=== PATIENT | male | born 1985 | race Caucasian/White ===

== ENCOUNTER 2016-12-30 10:46 | Emergency (ER) | payer SELFPAY ==
[2016-12-30 11:10] VITALS: BP 124/67
--- NOTE | 2016-12-30 11:51 | UC ---
Skin Complaint HPI - HPI Summary HPI Summary: Patient presents to with CC of poison katy x 3 days which has been worsening. Endorses pruritis but denies pain. He has experienced these symptoms before and is usually prescribed topical and systemic steroids for alleviation. He has tried calamine lotion at home without relief. He states he has an allergy to poison katy, but denies other allergies. - History of Current Complaint Chief Complaint: [facility] Time Seen by Provider: 12/30/16 11:33 Stated Complaint: RASH Hx Obtained From: Patient Onset/Duration: Sudden Onset Skin Exposure Onset/Duration: Days Ago Timing: Constant Onset Severity: Moderate Current Severity: Moderate Pain Intensity: 0 Pain Scale Used: 0-10 Numeric Location: Diffuse Character: Hives Aggravating: Nothing Associated Signs & Symptoms: Positive: Negative Related History: Possible Reaction to: Environmental Exposure - Allergy/Home Medications Allergies/Adverse Reactions: Allergies Allergy/AdvReac Type Severity Reaction Status Date / Time No Known Allergies Allergy Verified 12/30/16 11:11 Review of Systems Constitutional: Negative Skin: Rash Eyes: Negative Respiratory: Negative Cardiovascular: Negative Motor: Negative Neurovascular: Negative Neurological: Negative Psychological: Negative All Other Systems Reviewed And Are Negative: Yes PMH/Surg Hx/FS Hx/Imm Hx Previously Healthy: Yes - Surgical History Surgical History: None - Family History Known Family History: Positive: Unknown - Social History Occupation: Employed Full-time Lives: With Family Alcohol Use: None Substance Use Type: None Smoking Status (MU): Never Smoked Tobacco Have You Smoked in the Last Year: No Physical Exam Triage Information Reviewed: Yes Appearance: Well-Appearing, No Pain Distress, Well-Nourished Vital Signs: Initial Vital Signs Temp 97.8 F 12/30/16 11:08 Pulse 54 12/30/16 11:08 Resp 16 12/30/16 11:08 BP 124/67 12/30/16 11:08 Pulse Ox 100 12/30/16 11:08 Vital Signs Reviewed: Yes Eye Exam: Normal Eyes: Positive: Conjunctiva Clear Neck exam: Normal Neck: Positive: Supple, Nontender, No Lymphadenopathy Respiratory Exam: Normal Respiratory: Positive: Chest non-tender, Lungs clear Musculoskeletal Exam: Normal Musculoskeletal: Positive: Strength Intact Neurological Exam: Normal Neurological: Positive: Alert, Muscle Tone Normal Psychological: Positive: Normal Response To Family, Age Appropriate Behavior Skin Exam: Normal Course/Dx - Course Course Of Treatment: Patient educated on poison katy and treatments. Prescribed topical and systemic steroids for diffuse rash over legs, arms and one small area to the right cheek. Patient made aware of results and plan and is OK with discharge. Medications reviewed with patient. - Differential Diagnoses - Skin Complaint Differential Diagnoses: Contact Dermatitis, Poison [place], Poison [place] - Diagnoses Provider Diagnoses: poison katy Discharge - Discharge Plan Condition: Stable Disposition: HOME Prescriptions: Loratadine & Pseudoephedrine [Claritin-D 12 Hour] 1 tab PO DAILY #5 tab Triamcinolone 0.5% CREAM(NF) [Triamcinolone 0.5% CREAM*] 1 applic TOPICAL BID # 1 tube predniSONE TAB* [Deltasone TAB*] 50 mg PO DAILY #4 tab MDD 1 Patient Education Materials: Poison [place] (ED), Cold Compress or Soak (ED) Referrals: No Primary Care Phys,NOPCP [Primary Care Provider] - Additional Instructions: Follow up as needed Triamcinalone - apply to affected areas twice daily Calamine lotion - apply to affected areas twice daily Prednisone daily for 4 days.
== END 2016-12-30 11:49 | disposition home or self-care (01) ==
LOC: UCEAST 10:46
DX: L23.7 Allergic contact dermatitis due to plants, except food (principal)
CPT/HCPCS: 99212; G0463

== ENCOUNTER 2019-03-13 20:49 | Emergency (ER) | payer SELFPAY ==
--- NOTE | 2019-03-13 20:57 | UC ---
Cardiac HPI - HPI Summary HPI Summary: 33 yo male presents with palpitations. He tells me that for the last 2 days he has been noticing palpitations at rest when he is sitting in his car, lying in bed, or resting at home. He describes these as a "skipping beat". He has no associated SOB, chest pain, headache, dizziness, or weakness. He does not smoke , but he does chew tobacco. He drinks 2-3 energy drinks a week and reports being quite stressed out at work. His symptoms are not exacerbated by exertion. He denies any past medical history or illicit drug use. He denies any family history - especially no cardiac events. - History of Current Complaint Stated Complaint: CHEST COMPLAINT Time Seen by Provider: 03/13/19 20:55 Hx Obtained From: Patient Onset/Duration: Sudden Onset Current Severity: None - Allergy/Home Medications Allergies/Adverse Reactions: Allergies Allergy/AdvReac Type Severity Reaction Status Date / Time No Known Allergies Allergy Verified 03/13/19 20:58 Home Medications: Home Medications NK [No Home Medications Reported] 03/13/19 [History Confirmed 03/13/19] PMH/Surg Hx/FS Hx/Imm Hx - Additional Past Medical History Additional PMH: None - Surgical History Surgical History: None - Family History Known Family History: Positive: Unknown - Social History Occupation: Employed Full-time Lives: With Family Alcohol Use: None Substance Use Type: None Smoking Status (MU): Never Smoked Tobacco Have You Smoked in the Last Year: No Review of Systems All Other Systems Reviewed And Are Negative: No Constitutional: Positive: Negative Skin: Positive: Negative Respiratory: Positive: Negative Cardiovascular: Positive: Palpitations Gastrointestinal: Positive: Negative Neurovascular: Positive: Negative Neurological: Positive: Negative Psychological: Positive: Negative Physical Exam - Summary Physical Exam Summary: GENERAL: NAD. WDWN. No pain distress. SKIN: No rashes, sores, lesions, or open wounds. NECK: Supple. Nontender. No lymphadenopathy. CHEST: CTAB. No r/r/w. No accessory muscle use. Breathing comfortably and in no distress. CV: RRR. Without m/r/g. Pulses intact. Cap refill <2seconds ABDOMEN: Soft. NTTP. No distention or guarding. No CVA tenderness. Bowel sounds present NEURO: Alert. PSYCH: Age appropriate behavior. Triage Information Reviewed: Yes Vital Signs: Vital Signs: Temp Pulse Resp BP Pulse Ox 99.6 F 64 16 147/71 98 03/13/19 20:52 03/13/19 20:52 03/13/19 20:52 03/13/19 20:52 03/13/19 20:52 Laboratory Tests 03/13/19 21:24 POC Glucose (mg/dL) 75 Vital Signs Reviewed: Yes - Assessment/Plan Course Of Treatment: EKbpm sinus bradycardia. Early normal repol ST. No STEMI as read by Dr. Bravo. During the EKG there was a singular PVC noted that was not captured on the tracing. Discussed with pt that his stress at work and energy drink usage could be playing a role in his palpitations. I discussed going to the ED this evening for an evaluation with likely labwork and cardiac monitoring to further evaluate his symptoms, but pt did not want to do this. Therefore, I will draw for CBC, CMP, TSH, and Mag here and have him f/u with a PCP within 1 week for further evaluation. I discussed with him that if his symptoms worsen such as increasing palpitations , chest pain/pressure, SOB, dizziness, headaches, or changing symptoms to call 911 or go to the ED - pt and spouse with him voiced understanding and are agreeable with the plan. - Clinical Impression Provider Diagnosis: Palpitations Discharge ED - Sign-Out/Discharge Documenting (check all that apply): Patient Departure All imaging exams completed and their final reports reviewed: No Studies - Discharge Plan Condition: Stable Disposition: HOME Patient Education Materials: Heart Palpitations (DC) Referrals: No Primary Care Phys,NOPCP [Primary Care Provider] - [facility] [place] [facility] REFERRAL [Outside] - 1 Week Additional Instructions: If you develop a fever, shortness of breath, chest pain, continued/worsening palpitations, dizziness, headache, vomiting, new or worsening symptoms - please call your PCP or go to the ED immediately. I recommend that you follow up with a primary doctor at the number below within 1 week for review of your labwork and further testing of your palpitations - Billing Disposition and Condition Condition: STABLE Disposition: Home - Attestation Statements Provider Attestation: Per institutional requirements, I have reviewed the chart, however, I was not consulted specifically or made aware of this patient by the midlevel provider. I did not personally evaluate, interact with , or disposition this patient. please note I was on duty until 14:[address] Bravo was on after 14:30
[2019-03-13 20:59] VITALS: BP 147/71
[2019-03-14 14:02] LABS: ABS Eosinophils 0.3 10^3/ul (0-0.6); ABS Monocytes 0.6 10^3/ul (0-0.8); ABS Neutrophils 4.8 10^3/ul (1.5-7.7); Eosinophil % 3.3 %; Hematocrit 43 % (42-52); Hemoglobin 15.1 g/dL (14.0-18.0); Lymphocyte % 26.2 %; Mean Corpuscular HGB Conc 35 g/dL (31-36); Mean Corpuscular Hemoglobin 30 pg (27-31); Mean Corpuscular Volume 87 fL (80-94); Mean Platelet Volume 10.3 fL (7.4-10.4); Nucleated Red Blood Cells % 0.1; Platelet Count 198 10^3/uL (150-450); Red Blood Count 5.01 10^6 /uL (4.18-5.48); Red Cell Distribution Width 13 % (10-15); White Blood Count 7.8 10^3/uL (3.5-10.8)
[2019-03-14 14:32] LABS: TSH (Thyroid Stimulating Horm) 5.55 mcIU/mL (0.34-5.60)
[2019-03-14 17:05] LABS: Albumin 4.5 g/dL (3.2-5.2); Calcium 9.3 mg/dL (8.6-10.3); Magnesium 2.2 mg/dL (1.9-2.7); Potassium 3.9 mmol/L (3.5-5.0); Total Bilirubin 0.4 mg/dL (0.2-1.0)
[2019-03-14 17:11] LABS: Albumin/Globulin Ratio 2.3 (1-3); BUN/Creatinine Ratio 18.2 (8-20); EGFR African American 104.1 (>60); Total Protein 6.5 g/dL (6.4-8.9)
--- NOTE | 2019-03-14 17:38 | UC ---
- Progress Note Progress Note: Blood work reviewed, no change to management, should follow up with primary physician as notes indicate. -Jolly Mendoza PAC Course/Dx - Diagnoses Provider Diagnoses: Palpitations Discharge ED - Sign-Out/Discharge Documenting (check all that apply): Patient Departure All imaging exams completed and their final reports reviewed: No Studies - Discharge Plan Condition: Stable Disposition: HOME Patient Education Materials: Heart Palpitations (DC) Referrals: [facility] [place] [facility] [place]Outside] - 1 Week No Primary Care Phys,NOPCP [Primary Care Provider] - Additional Instructions: If you develop a fever, shortness of breath, chest pain, continued/worsening palpitations, dizziness, headache, vomiting, new or worsening symptoms - please call your PCP or go to the ED immediately. I recommend that you follow up with a primary doctor at the number below within 1 week for review of your labwork and further testing of your palpitations - Billing Disposition and Condition Condition: STABLE Disposition: Home
== END 2019-03-13 21:50 | disposition home or self-care (01) ==
LOC: UCEAST 20:49
DX: R00.2 Palpitations (principal); R00.1 Bradycardia, unspecified; F17.220 Nicotine dependence, chewing tobacco, uncomplicated
CPT/HCPCS: 36415; 80053; 83735; 84443; 85025; 93005; 99211; G0463